=== PATIENT | male | born 1970 | race Caucasian/White ===

== ENCOUNTER → 2019-04-11 20:59 | Emergency (ER) | payer OTHER ==
[~2019-04-11 20:59] MED LIST: Pantoprazole IV* 40 MG IV ONE
--- NOTE | 2019-04-11 21:58 | ED ---
GI/ HPI - HPI Summary HPI Summary: A 49 y/o male presents to [facility] with a chief complaint of being unable to swallow after eating pork and beans around 19:00. He says that it feels like something is stuck in his throat. He denies any pain, rating his pain as a 0/10 in severity. This has happened a few times to him in the past but he claims that this is the first time that he has come into the hospital because of food being stuck in his throat. He notes that he has not been scoped before. In the ED room the patient was not able to drink water as it came right back up. - History of Current Complaint Chief Complaint: EDForeignBodyEsophag Time Seen by Provider: 04/11/19 21:50 Stated Complaint: CANT SWALLOW, SOMETHING CAUGHT IN MY THROAT PER PT Hx Obtained From: Patient Onset/Duration: Started Hours Ago, Still Present Timing: Constant, Lasting Hours Severity: Mild Current Severity: None Pain Intensity: 0 Location of Pain: None Pain Characteristics: Unable to describe Associated Signs and Symptoms: Positive: Other: - negative: pain. Negative: Fever Aggravating Factor(s): Nothing Alleviating Factor(s): Nothing - Allergy/Home Medications Allergies/Adverse Reactions: Allergies Allergy/AdvReac Type Severity Reaction Status Date / Time No Known Allergies Allergy Verified 04/11/19 21:08 PMH/Surg Hx/FS Hx/Imm Hx Respiratory History: Reports: Hx Asthma Sensory History: Denies: Hx Deafness EENT History: Denies: Hx Deafness Infectious Disease History: No Infectious Disease History: Denies: Traveled Outside the [place] in Last 30 Days - Family History Known Family History: Negative: Blood Disorder - Social History Alcohol Use: None Hx Substance Use: No Substance Use Type: Reports: None Hx Tobacco Use: No Smoking Status (MU): Never Smoked Tobacco Review of Systems Negative: Fever Positive: Other - positive: foreign body "stuck in throat, Pt was not able to drink water, it comes right back up. All Other Systems Reviewed And Are Negative: Yes Physical Exam - Summary Physical Exam Summary: VITAL SIGNS: Reviewed. GENERAL: Patient is a well-developed and nourished MALE who is lying comfortable in the stretcher. Patient is not in any acute respiratory distress. Pt was not able to drink water, it comes right back up. HEAD AND FACE: No signs of trauma. No ecchymosis, hematomas or skull depressions. No sinus tenderness. EYES: PERRLA, EOMI x 2, No injected conjunctiva, no nystagmus. EARS: Hearing grossly intact. Ear canals and tympanic membranes are within normal limits. MOUTH: Oropharynx within normal limits. NECK: Supple, trachea is midline, no adenopathy, no JVD, no carotid bruit, no c- spine tenderness, neck with full ROM CHEST: Symmetric, no tenderness at palpation LUNGS: Clear to auscultation bilaterally. No wheezing or crackles. CVS: Regular rate and rhythm, S1 and S2 present, no murmurs or gallops appreciated. ABDOMEN: Soft, non-tender. No signs of distention. No rebound no guarding, and no masses palpated. Bowel sounds are normal. EXTREMITIES: FROM in all major joints, no edema, no cyanosis or clubbing. NEURO: Alert and oriented x 3. No acute neurological deficits. Speech is normal and follows commands. SKIN: Dry and warm Triage Information Reviewed: Yes Vital Signs On Initial Exam: Initial Vitals Temp Pulse Resp BP Pulse Ox 97.3 F 100 16 144/103 100 04/11/19 21:05 04/11/19 21:05 04/11/19 21:05 04/11/19 21:05 04/11/19 21:05 Vital Signs Reviewed: Yes Diagnostics - Vital Signs Vital Signs Temp Pulse Resp BP Pulse Ox 04/11/19 21:05 97.3 F 100 16 144/103 100 - Laboratory Lab Statement: Any lab studies that have been ordered have been reviewed, and results considered in the medical decision making process. GIGU Course/Dx - Course Course Of Treatment: A 49 y/o male presents to [facility] with a chief complaint of being unable to swallow after eating pork and beans around 19:00. He says that it feels like something is stuck in his throat. He denies any pain. The physical exam revealed that the Pt was not able to drink water, it comes right back up. In the ED course the patient was given Protonix IV. Discussed case with Dr. Campbell, who will see the patient in the ED. When GI arrived patient was able to drink 16 oz. of fluid with no issues. The patient will be discharged with a prescription for Protonix and follow up with his PCP. The patient is agreeable with this plan. - Diagnoses Provider Diagnoses: Food impaction of esophagus - Physician Notifications Discussed Care Of Patient With: Richi Brady Time Discussed With Above Provider: 21:55 Instructed by Provider To: MD Will See In ED - for scope Discharge - Sign-Out/Discharge Documenting (check all that apply): Patient Departure - DC Patient Received Moderate/Deep Sedation with Procedure: No - Discharge Plan Condition: Stable Disposition: HOME Prescriptions: Pantoprazole TAB * [Protonix TAB*] 40 mg PO DAILY #30 tab Referrals: [facility] [place] [facility] REFERRAL [Outside] (2-3 days) Additional Instructions: PLEASE RETURN TO THE ED IMMEDIATELY FOR WORSENING OR CONCERNING SYMPTOMS. - Billing Disposition and Condition Condition: STABLE Disposition: Home - Attestation Statements Document Initiated by Carolinibe: Yes Documenting Scribe: Arturo Carter Provider For Whom Maryse is Documenting (Include Credential): Celine Henriquez MD Scribe Attestation: Arturo Pandya scribed for Celine Henriquez MD on 04/12/19 at 0542. Scribe Documentation Reviewed: Yes Provider Attestation: The documentation as recorded by the Arturo pyle accurately reflects the service I personally performed and the decisions made by me, Celine Henriquez MD Status of Scribe Document: Viewed
[2019-04-11 23:36] VITALS: BP 146/92
--- NOTE | 2019-04-12 01:27 | CONS ---
CONSULTATION REPORT: DATE OF CONSULT: 04/11/19 - EMERGENCY DEPT REQUESTING PHYSICIAN: Dr. Henriquez in the emergency room. PRIMARY CARE PHYSICIAN: None. INDICATION: Esophageal foreign body. NARRATIVE: Mr. Pittman is a very pleasant 49-year-old gentleman who has a history of food becoming stuck. He states that tonight around 7 p.m., he was eating a pork chop and it felt like it became stuck. He was pointing to his sternal notch. He tried to drink some fluids and the fluids came back up on him. He came to the emergency room. He was able to swallow his saliva; however , the emergency room doctor did give the patient a glass of water. It did stay down for about 15 seconds and then came back up. At that point, the emergency room doctor called me and asked me to come in to see the patient. The patient states that this had happened to him before. He is unable to force himself to vomit to dislodge the food. He denies any history of heartburn in the past. No new medications. No antibiotics. He denies any odynophagia in the past. No fevers, no chills. He has never had any endoscopies in the past. He does say that he has multiple aunts on both sides of the family who has had upper endoscopies with esophageal dilatations. He denies any nonsteroidals. PAST MEDICAL HISTORY: Remote history of asthma. He has not used any inhalers in the past 8 years. No other past medical history. No surgical history. MEDICATIONS: Current medications none. ALLERGIES: No known drug allergies. FAMILY HISTORY: No first-degree family members with any esophageal malignancies or esophageal disorders; however, please see the HPI for second- degree relatives. REVIEW OF SYSTEMS: Twelve systems were reviewed and other than that mentioned in the HPI were unremarkable. PHYSICAL EXAM: Temperature is 97.3, blood pressure is 144/103, O2 sat is 100% on room air, respiratory rate is 16, pulse is 100. General: Well-appearing male, in no apparent distress. Sitting upright in bed. He does have an emesis basin next to him; however, he is not drooling, he is not spitting up into it. HEENT: Dentition is intact. Neck: Supple. Trachea is midline. Lymphs: No supraclavicular or cervical lymphadenopathy. Heart: Regular rate and rhythm. No murmurs, rubs or gallops; however, he is tachycardic. Lungs: Clear to auscultation bilaterally. No wheezes. Abdomen: Obese. Positive bowel sounds. Soft. Nontender, nondistended. No hepatosplenomegaly, masses, rebound , or guarding. Skin is warm and dry. No rashes are noted. DIAGNOSTIC STUDIES/LAB DATA: None. ASSESSMENT AND PLAN: This is a pleasant 49-year-old gentleman who presented to the emergency room with symptoms of esophageal foreign body. The patient was not drooling at all while I interviewed him. At that point, I did decide to give him a 16-ounce glass of water. He was able to drink the water without any difficulties at all. I then continued to interview him for the next 5 to 10 minutes and he did not regurgitate the 16 ounces of water at all. At this point , he feels that the foreign body has been dislodged, he is able to tolerate liquids and his own saliva. He most likely has either an esophageal stricture or eosinophilic esophagitis. There are no worrisome findings to suggest something ominous like a malignancy. He does not have any history of GERD symptoms, thus eosinophilic esophagitis would be higher on the list. I did tell him that since my nurse, myself, and all of our equipment are here already in the emergency room that we could perform an upper endoscopy right now. However, if he did happen to have esophageal stricture, I would not feel comfortable in dilating it tonight given the fact that he has had a foreign body lodged for the past few hours that we would need to bring him back and perform another endoscopy. He is agreeable to returning for an outpatient endoscopy. I asked him to cut up his food extremely well, chew very well, always drink liquids while he is eating, and I will have my office call him first thing in the morning to arrange for an outpatient upper endoscopy. Again , the patient was able to tolerate 16 ounces of water without any dysphagia symptoms. [id number]/[facility] #: [id number] MTDDonna
== END | disposition home or self-care (01) ==
LOC: ED 20:59
DX: T18.120A Food in esophagus causing compression of trachea, initial encounter (principal); X58.XXXA Exposure to other specified factors, initial encounter; Y92.9 Unspecified place or not applicable
CPT/HCPCS: 99282

== ENCOUNTER 2019-08-16 16:35 | Emergency (ER) | payer OTHER ==
[2019-08-16] MEDS ORDERED: NS 0.9% 1000 ML** 1,000 ML IV ONE (16:43)
--- NOTE | 2019-08-16 16:50 | ED ---
Adult Trauma - HPI Summary HPI Summary: Patient is a 49 y/o M presenting to [facility] via private car for evaluation of trauma injuries. Patient was cutting down a tree when it fell and struck him in the head. Father drove the patient to the ED. Provider in room immediately upon the patient's arrival. Patient reports upper back pain but denies MCCAIN, visual changes, chest pain, SOB, abdominal pain and hip pain. He denies PMHx and reports that he does not take any daily medications. - History of Current Complaint Chief Complaint: EDTraumaMultiple Stated Complaint: HEAD INJURY PER FATHER Hx Obtained From: Patient Mechanism of Injury: Blunt Trauma Ambulatory at the Scene: Yes Restraints: None Onset/Duration: Still Present Onset of Pain: Prior to Arrival Current Severity: Severe Pain Intensity: 10 Pain Scale Used: 0-10 Numeric Location: Head, Back Associated Signs & Symptoms: Positive: Other: - negative - visual changes, neck pain, hip pain; positive - upper back pain. Negative: SOB, Chest Pain, Abdominal Pain - Allergy/Home Medications Allergies/Adverse Reactions: Allergies Allergy/AdvReac Type Severity Reaction Status Date / Time No Known Allergies Allergy Verified 08/16/19 16:38 PMH/Surg Hx/FS Hx/Imm Hx Endocrine/Hematology History: Denies: Hx Diabetes Cardiovascular History: Denies: Hx Hypertension Infectious Disease History: No Infectious Disease History: Denies: Traveled Outside the [place] in Last 30 Days Review of Systems Eyes: Other - negative - visual changes Negative: Chest Pain Negative: Shortness Of Breath Negative: Abdominal Pain Musculoskeletal: Other - positive - head injury, upper back pain; negative - hip pain All Other Systems Reviewed And Are Negative: Yes Physical Exam - Summary Physical Exam Summary: Constitutional: Well-developed, Well-nourished, Alert. Skin: Warm, Dry; Multiple abrasions to back HENT: Normocephalic; No hematomas; he has a right oriental orthodox scalp laceration Eyes: Conjunctiva normal, PERRLA, EOMI, periorbital contusion Neck: Musculoskeletal ROM normal neck. (-) JVD, (-) Stridor, (-) Tracheal deviation (-) C-spine tenderness Cardio: Rhythm regular, rate normal, Heart sounds normal; Intact distal pulses; The pedal pulses are 2+ and symmetric. Radial pulses are 2+ and symmetric. (-) Murmur Pulmonary/Chest wall: Effort normal. (-) Respiratory distress, (-) Wheezes, (-) Rales Abd: Soft, (-) tenderness (-) Distension, (-) Guarding, (-) Rebound Musculoskeletal: (+) T-spine tenderness (-) Edema Lymph: (-) Cervical adenopathy Neuro: Alert, Oriented x3, GCS 15 Psych: Mood and affect Normal Triage Information Reviewed: Yes Vital Signs On Initial Exam: Initial Vitals Temp Pulse Resp BP Pulse Ox 96.3 F 107 20 117/81 94 08/16/19 16:36 08/16/19 16:36 08/16/19 16:36 08/16/19 16:36 08/16/19 16:36 Vital Signs Reviewed: Yes - Margot Coma Scale Best Eye Response: 4 - Spontaneous Best Motor Response: 6 - Obeys Commands Best Verbal Response: 5 - Oriented Coma Scale Total: 15 Procedures - Procedure Summary Procedure Summary: Patient has a right oriental orthodox scalp laceration that is 3.0 cm and linear. Lido 1% was used, 5 ruth ann were placed. Bacitracin was applied afterwards. - Sedation Patient Received Moderate/Deep Sedation with Procedure: No - Laceration/Wound Repair 1 Location: head - scalp, right oriental orthodox Description: Linear - 3.0 cm Anesthesia: 1.0%, Lido Length, Depth and Shape: 3.0 cm linear Irrigated w/ Saline (ccs): 100 Closure: Vance #__ - 5 Diagnostics - Vital Signs Vital Signs Temp Pulse Resp BP Pulse Ox 08/16/19 16:36 96.3 F 107 20 117/81 94 - Laboratory Result Diagrams: 08/16/19 16:40 08/16/19 16:40 Lab Statement: Any lab studies that have been ordered have been reviewed, and results considered in the medical decision making process. - CT CHEST/ABD/PEL CT CT Interpretation Completed By: Radiologist Summary of CT Findings: CHEST/ABDOMEN/PELVIS CT IMPRESSION: No definite solid organ injury is noted. No evidence of fracture is noted. No. free fluid is noted in the pelvis. CERVICAL SPINE CT CT Interpretation Completed By: Radiologist Summary of CT Findings: CERVICAL SPINE CT IMPRESSION: 1. No fracture or traumatic malalignment of the cervical spine. 2. Acquired osseous fusion of the left C2-C3 facets. 3. Moderate C5-C6 and C6-C7 degenerative disc disease. No severe osseous encroachment. spinal canal or neural foramina. THIS REPORT WAS REVIEWED BY DR. CHARLTON. BRAIN CT CT Interpretation Completed By: Radiologist Summary of CT Findings: BRAIN CT IMPRESSION: 1. NONDISPLACED SKULL FRACTURE INVOLVING THE RIGHT PARIETAL AND TEMPORAL BONES EXTENDING. FROM NEAR THE VERTEX TO THE SKULL BASE. THERE IS AN SMALL EXTRA-AXIAL HEMATOMA ADJACENT TO. THE FRACTURE SUSPICIOUS FOR AN EPIDURAL HEMATOMA LESS LIKELY A SUBDURAL HEMATOMA. NO. SIGNIFICANT MASS EFFECT IS SEEN. THERE IS PNEUMOCEPHALUS PRESENT. 2. LARGE HEMATOMA IN THE SCALP ADJACENT TO THE RIGHT FRONTAL, PARIETAL AND TEMPORAL BONES. ALONG THE FRACTURE LINE. 3. AIR-FLUID LEVELS WITHIN THE RIGHT MAXILLARY AND SPHENOID SINUSES. THIS REPORT WAS REVIEWED BY DR. CHARLTON. MAXILLOFACIAL CT CT Interpretation Completed By: Radiologist Summary of CT Findings: MAXILLOFACIAL CT IMPRESSION: 1. A nondisplaced right temporal bone fracture extends into the right middle cranial. fossa. The 6 mm subjacent extra axial hematomas described above have features concerning. for epidural blood products. 2. Nondisplaced fractures through the lateral wall and floor of the right orbit. The. infraorbital canal is violated. There is trace extraconal hematoma. 3. The lateral wall of the right sphenoid sinus contains a nondisplaced fracture. The. fracture plane extends to the right optic canal and pterygopalatine fossa. THIS REPORT WAS REVIEWED BY DR. CHARLTON. Re-Evaluation - Re-Evaluation First Eval Re-Evaluation Time: 17:40 Comment: Laceration was stapled. Second Eval Re-Evaluation Time: 17:55 Comment: Transfer was discussed, he is agreeable. Adult Trauma Course/Dx - Course Course Of Treatment: Patient is a 49 y/o M presenting to [facility] via private car for evaluation of trauma injuries. Patient was cutting down a tree when it fell and struck him in the head. Patient reports upper back pain but denies MCCAIN, visual changes, chest pain, SOB, abdominal pain and hip pain. He denies PMHx and reports that he does not take any daily medications. Patient has right oriental orthodox scalp laceration and periorbital contusion. He has multiple abrasions to back. He has T-spine tenderness, no C-spine tenderness noted. GCS 15. Bloodwork was obtained. Abnormal values include WBC 19.3, RBC 4.92, Absolute neuts 15.7, BUN 25, BUN/creatinine ratio 21.9, glucose 121, INR 1.11. During ED course, patient received fluids, morphine 4 mg IV x 2, Zofran 4 mg IV, cefazolin sodium 1 gm in sodium chloride, 50 mls @ 200 mls/hr IVPB. He received a Boostrix shot. Patient has a right oriental orthodox scalp laceration that is 3.0 cm and linear. Lido 1% was used, 5 ruth ann were placed. Bacitracin was applied afterwards. CHEST/ABDOMEN/PELVIS IMPRESSION: No definite solid organ injury is noted. No evidence of fracture is noted. No. free fluid is noted in the pelvis. CERVICAL SPINE IMPRESSION: 1. No fracture or traumatic malalignment of the cervical spine. 2. Acquired osseous fusion of the left C2-C3 facets. 3. Moderate C5-C6 and C6-C7 degenerative disc disease. No severe osseous encroachment. spinal canal or neural foramina. BRAIN CT IMPRESSION: 1. NONDISPLACED SKULL FRACTURE INVOLVING THE RIGHT PARIETAL AND TEMPORAL BONES EXTENDING. FROM NEAR THE VERTEX TO THE SKULL BASE. THERE IS AN SMALL EXTRA- AXIAL HEMATOMA ADJACENT TO. THE FRACTURE SUSPICIOUS FOR AN EPIDURAL HEMATOMA LESS LIKELY A SUBDURAL HEMATOMA. NO. SIGNIFICANT MASS EFFECT IS SEEN. THERE IS PNEUMOCEPHALUS PRESENT. 2. LARGE HEMATOMA IN THE SCALP ADJACENT TO THE RIGHT FRONTAL, PARIETAL AND TEMPORAL BONES. ALONG THE FRACTURE LINE. 3. AIR-FLUID LEVELS WITHIN THE RIGHT MAXILLARY AND SPHENOID SINUSES. MAXILLOFACIAL CT IMPRESSION: 1. A nondisplaced right temporal bone fracture extends into the right middle cranial. fossa. The 6 mm subjacent extra axial hematomas described above have features concerning. for epidural blood products. 2. Nondisplaced fractures through the lateral wall and floor of the right orbit. The. infraorbital canal is violated. There is trace extraconal hematoma. 3. The lateral wall of the right sphenoid sinus contains a nondisplaced fracture. The. fracture plane extends to the right optic canal and pterygopalatine fossa. 1748 - Patient's case was discussed with Dr. Bah. Dr. Bah advises transfer for trauma services. 1801 - Patient's case was discussed with Dr. Akers from [facility] in [place]. Dr. Akers accepts the patient for ED to ED transfer. - Diagnoses Provider Diagnoses: Skull fracture, Epidural hematoma, Scalp laceration, Multiple abrasions, Back strain - Physician Notifications Discussed Care Of Patient With: Michelle Bah Time Discussed With Above Provider: 17:49 Instructed by Provider To: Other - 1735 - Dr. Esteves discussed CTs with Dr. Charlton. 174 - Patient's case was discussed with Dr. Bah. Dr. Bah advises transfer. 1801 - Patient's case was discussed with Dr. Akers from [facility] in [place]. Dr. Akers accepts the patient for ED to ED transfer. - Critical Care Time Critical Care Time: 30-74 min - 30 minutes CCT Discharge ED - Sign-Out/Discharge Documenting (check all that apply): Patient Departure - transfer - Discharge Plan Condition: Stable Disposition: TRANS HIGHER LVL OF CARE FAC - Attestation Statements Document Initiated by Scribe: Yes Documenting Scribe: WILLA HERRERA Provider For Whom Scribe is Documenting (Include Credential): FAREED CHARLTON DO Scribe Attestation: IWILLA, scribed for FAREED CHARLTON DO on 08/16/19 at 1834. Status of Scribe Document: Ready
[2019-08-16 17:03] LABS: ABS Basophils 0.1 10^3/ul (0-0.2); ABS Eosinophils 0.4 10^3/ul (0-0.6); ABS Lymphocytes 2.4 10^3/ul (1.0-4.8); ABS Monocytes 0.8 10^3/ul (0-0.8); ABS Neutrophils 15.7 10^3/ul (1.5-7.7); Eosinophil % 1.8 %; Hematocrit 45 % (35-47); Hemoglobin 14.9 g/dL (12.0-16.0); Lymphocyte % 12.2 %; Mean Corpuscular HGB Conc 33 g/dL (31-36); Mean Corpuscular Hemoglobin 30 pg (27-31); Mean Corpuscular Volume 92 fL (80-97); Nucleated Red Blood Cells % 0.1; Platelet Count 398 10^3/uL (150-450); Red Blood Count 4.92 10^6 /uL (3.70-4.87); Red Cell Distribution Width 13 % (10-15); White Blood Count 19.3 10^3/uL (3.5-10.8)
[2019-08-16] MEDS ORDERED: Ondansetron INJ* 2 MG/ML VIAL IV ONE (17:13)
[2019-08-16] MEDS ORDERED: Ondansetron INJ* 2 MG/ML VIAL ONE (17:13)
[2019-08-16] MEDS ORDERED: Morphine 4 MG/ML VIAL (1 ml) 4 MG/ML VIAL IV ONE ×3 (17:13→19:25)
[2019-08-16] MEDS ORDERED: Morphine 4 MG/ML VIAL (1 ml) 4 MG/ML VIAL ONE (17:14)
[2019-08-16 17:26] LABS: Albumin 4.5 g/dL (3.2-5.2); Albumin/Globulin Ratio 1.5 (1-3); BUN/Creatinine Ratio 21.9 (8-20); Calcium 9.3 mg/dL (8.6-10.3); EGFR African American 82.3 (>60); Total Bilirubin 0.4 mg/dL (0.2-1.0); Total Protein 7.5 g/dL (6.4-8.9)
[2019-08-16] MEDS ORDERED: Lidocaine 1% MPF ** 5 ML VIAL INJ ONE (17:27)
[2019-08-16] MEDS ORDERED: Lidocaine 1% MPF ** 5 ML VIAL ONE (17:28)
[2019-08-16] MEDS ORDERED: Bacitracin OINTMENT* 0.5% 0.5 oz TUBE ONE (17:29)
[2019-08-16] MEDS ORDERED: Bacitracin OINTMENT* 0.5% 0.5 oz TUBE TOPICAL ONE (17:29)
[2019-08-16] MEDS ORDERED: ceFAZolin 1 GM ADVAN(*) 1 GM ADDV.VIAL IVPB ONE (17:51)
[2019-08-16] MEDS ORDERED: Tetanus-Diptheria Toxoids* 0.5 ML SYRINGE IM ONE (17:57)
[2019-08-16] MEDS ORDERED: ceFAZolin 1 GM ADVAN(*) 1 GM in NS 0.9% 50 ML* 50 ML IVPB ONE (17:57)
[2019-08-16] MEDS ORDERED: NS 0.9% 1000 ML** 1,000 ML IV SCH (18:00)
[2019-08-16] MEDS ORDERED: Tetan/Diph/Pertus SYR(Tdap)* 0.5 ML SYR(BOOSTRIX) use SYR contains LATEX IM ONE ×2 (18:05→19:00)
[2019-08-16 18:26] LABS: Activated Partial Thrombo Time 35.6 seconds (26.0-38.0); INR 1.11 (0.82-1.09)
[2019-08-16 20:14] VITALS: BP 115/69
== END 2019-08-16 20:26 | disposition short-term general hospital (02) ==
LOC: EDSEX → ED 16:35 → MERGE 16:35 → ED 20:26
DX: S02.0XXA Fracture of vault of skull, initial encounter for closed fracture (principal); S06.4X9A Epidural hemorrhage with loss of consciousness of unspecified duration, initial encounter; S02.19XA Other fracture of base of skull, initial encounter for closed fracture; S01.01XA Laceration without foreign body of scalp, initial encounter; S39.012A Strain of muscle, fascia and tendon of lower back, initial encounter; T14.8XXA Other injury of unspecified body region, initial encounter; W20.8XXA Other cause of strike by thrown, projected or falling object, initial encounter; Y93.89 Activity, other specified; Y92.9 Unspecified place or not applicable
CPT/HCPCS: 12002; 36415; 70450; 70486; 71250; 72125; 74176; 80053; 85025; 85610; 85730; 90471; 90715; 96361; 96365; 96375; 96376; 99282; A9270-GY; J0690; J2270; J2405